=== PATIENT | female | born 1965 | race Caucasian/White ===

== ENCOUNTER → 2017-01-18 | Outpatient (CLI) | payer OTHER ==
[~2017-01-18] VITALS: Ht 157.5 cm; Wt 125.6 kg
[~2017-01-18] MED LIST: ADVAIR 500/501 DISK IH; ADVIL200 MG PO; BENTYL10 MG PO; ELIQUIS5 MG PO; FLONASE16 G1 BOTH NARES; FORTAMET500 MG PO; HUMALOG MI100 UNIT/5 SC; HUMALOG MI100 UNIT/6 SQ; HYDROCHLOROTHIA50 MG PO; LANTUS 3 M100 UNITS1 SC; LOPRESSOR50 MG PO; METFORMIN HCL1000 M3 PO; POTASSIUM CHLO10 MEQ PO; SPIRIVA1 INHALATI IH; TYLENOL ARTHRI650 MG PO; WELCHOL625 MG PO
[2017-01-18 12:53] LABS: POINT-OF-CARE METER ID UU14107333
[2017-01-18 13:28] LABS: ANION GAP 10 MEQ/L (2-14); CHLORIDE 102 MEQ/L (99-109); GFR ESTIMATE (CALCULATED) > 59 mL/min/; GLUCOSE 252 mg/dL (70-99); POTASSIUM 4.7 MEQ/L (3.7-5.4); SAMPLE HEMOLYSIS CHECK 0; SAMPLE ICTERIC CHECK 0; SAMPLE LIPEMIA CHECK 0; SODIUM 138 MEQ/L (136-147); UREA NITROGEN (BUN) 9 mg/dL (9-23)
== END | disposition home or self-care (01) ==
LOC: AMB 11:59
PROVIDERS: Internal Medicine Gastroenterology
DX: R19.7 Diarrhea, unspecified (principal); D12.2 Benign neoplasm of ascending colon; K62.89 Other specified diseases of anus and rectum; K64.8 Other hemorrhoids; K57.30 Diverticulosis of large intestine without perforation or abscess without bleeding; R59.9 Enlarged lymph nodes, unspecified; R10.13 Epigastric pain; K21.0 Gastro-esophageal reflux disease with esophagitis; K31.7 Polyp of stomach and duodenum; K29.60 Other gastritis without bleeding; K92.1 Melena; E11.9 Type 2 diabetes mellitus without complications; Z79.4 Long term (current) use of insulin; J45.909 Unspecified asthma, uncomplicated; Z86.010 Personal history of colon polyps; Z90.710 Acquired absence of both cervix and uterus; Z90.49 Acquired absence of other specified parts of digestive tract
CPT/HCPCS: 80048; 82948; 88305; 88342 TC